=== PATIENT | male | born 1970 | race Caucasian/White ===

== ENCOUNTER 2021-05-20 12:52 | Emergency (ER) | payer SELFPAY ==
[2021-05-20 13:04] VITALS: BP 144/91; PULSE 80; RESP 19; TEMP 36.6; O2SAT 96; BMI 26.9
--- NOTE | 2021-05-20 13:51 | XRR_ITS ---
PROCEDURE INFORMATION: Exam: XR Chest Exam date and time: 05/20/2021 1:51 PM Age: 51 years old Clinical indication: Pain; Chest pressure; Additional info: Chest discomfort TECHNIQUE: Imaging protocol: XR of the chest. Views: 1 view. COMPARISON: No relevant prior studies available. FINDINGS: Lungs: Unremarkable. No consolidation. Pleural spaces: Unremarkable. No pleural effusion. No pneumothorax. Heart/Mediastinum: Unremarkable. No cardiomegaly. Bones/joints: Unremarkable. XR/XR chest 1V portable [id number] IMPRESSION: No acute findings.
[2021-05-20 14:16] VITALS: BP 166/103; PULSE 74; RESP 16; O2SAT 96
[2021-05-20 14:29] LABS: Add Urine Microscopic? NO; Charge for UA Resulting for Rev
--- NOTE | 2021-05-20 14:29 | ED_ITS ---
Documented by User: [email or web address] Rodriguez 05/20/21 16:16 HPI - General Adult General: Chief complaint: General Medical Stated complaint: CHEST PAINS Time Seen by Provider: 05/20/21 13:45 History of Present Illness: HPI narrative: Patient been feeling bad for 2 to 3 weeks. Was started on blood pressure medication 3 months ago was placed on lisinopril and doxycycline for his teeth problems. Did not feel good at all after starting his medication was taken off and placed on Micardis. Blood pressures improved significantly but he said he still feels bad. States he has chest discomfort radiates at times into his neck both arms get tingly and feel numb at times. Does complain about anxiety and longstanding history of anxiety has not had any shortness of breath nausea vomiting or diaphoresis. Patient has been working full-time during this time and work exertion does not seem to aggravate or cause it to happen. Onset (ago): week(s) Associated symptoms: Reports malaise; Deny chest pain, dyspnea, headache(s), nausea, rash or vomiting Review of Systems Const: Reports: malaise Eyes: Denies: change in vision or blurry vision ENMT: Denies: throat pain or nasal congestion Card: Reports: other (Chest discomfort); Denies: chest pain or dyspnea on exertion Resp: Denies: dyspnea, productive cough or non-productive cough GI: Denies: abdominal pain, nausea or vomiting : Denies: difficulty urinating Musc: Denies: extremity pain Skin/Breast: Denies: rash Neuro: Reports: numbness in extremities and weakness in extremities; Denies: headache(s) Psych: Reports: anxiety; Denies: depression Surendra/Lymph: Denies: easy bruising Physical Exam Const: COMMON NORMALS: no acute distress, average body habitus and patient oriented x3 HENMT: COMMON NORMALS: normocephalic HEAD & SCALP: normal to inspection and normocephalic FACE & SINUS: normal facial exam Eye: COMMON NORMALS: conjunctivae normal GENERAL EYE: appearance normal, both eyes and all related structures CONJUNCTIVA: Yes conjunctivae normal Neck/C-Spine: COMMON NORMALS: no JVD Chest: COMMONS NORMALS: normal inspection of the chest Resp: COMMON NORMALS: normal respiratory effort and clear to auscultation bilaterally AUSCULTATION: clear to auscultation bilaterally Cardio: COMMON NORMALS: no JVD, regular rate and regular rhythm RATE: regular rate RHYTHM: regular rhythm GI: COMMON NORMALS: Normal to inspection, nondistended, normoactive bowel sounds present Extremity: COMMON NORMALS: normal to inspection and full ROM Neuro: COMMON NORMALS: patient oriented x3 Course Vital Signs: Vital signs: Vital Signs Temperature 97.8 F 05/20/21 13:04 Pulse Rate 83 05/20/21 17:50 Respiratory Rate 15 05/20/21 17:50 Blood Pressure 138/91 05/20/21 17:50 Pulse Oximetry 98 05/20/21 17:50 [facility] - General Adult Lab Data: Labs: Lab Results 05/20/21 05/20/21 05/20/21 Range/Units 14:22 14:22 14:22 WBC 8.5 (4.0-10.0) 10^3/ uL RBC 5.49 H (4.1-5.3) 10^6/u L Hgb 17.3 H (11.7-16.6) g/dL Hct 50.3 (42.0-52.0) % MCV 91.6 (80-94) fL MCH 31.5 (28.0-34.0) pg MCHC 34.4 (30.0-36.0) g/dL RDW 12.0 L (12.1-15.1) % Plt Count 229 (130-400) 10^3/c mm MPV 9.5 (7.4-10.4) fL Neut % (Auto) 50.4 % Lymph % (Auto) 42.4 % Jerauld % (Auto) 5.4 % Eos % (Auto) 1.5 % Baso % (Auto) 0.1 % Neut # (Auto) 4.30 (1.8-7.7) 10^3/u L Lymph # (Auto) 3.6 (0.8-4.8) 10^3/u L Jerauld # (Auto) 0.5 (0.2-0.9) 10^3/u L Eos # (Auto) 0.1 (0.0-0.8) 10^3/u L Baso # (Auto) 0.0 (0.0-0.1) 10^3/u L Nucleated RBC % (a uto) 0 % Nucleated RBCs # 0.0 /100WBC Sodium 136 (136-145) mmol/L Potassium 3.8 (3.5-5.1) mmol/L Chloride 98 (98-107) mmol/L Carbon Dioxide 30 H (22-29) mmol/L Anion Gap 11.8 (5-19) BUN 9 (6-20) mg/dL Creatinine 0.9 (0.7-1.2) mg/dL GFR Calculation 88.3 L (90-130) mL/min Glucose 107 (65-115) mg/dL Calculated Osmolal ity 281 L (285-295) mOsm/k g Calcium 9.4 (8.5-10.5) mg/dL Total Bilirubin 0.6 (0.15-1.2) mg/dL AST 13 (0-40) U/L ALT 14 (0-41) U/L Alkaline Phosphata se 85 (40-130) IU/L Troponin T Baselin e 7 (0-15) ng/L Troponin T 120 Min [place] (0-15) ng/L Delta Troponin T (0-10) ABS# Total Protein 7.0 (6.6-8.7) g/dL Albumin 4.5 (3.5-5.2) g/dL Globulin 2.5 (1.3-4.6) g/dL Urine Color (Yellow) Urine Appearance (CLEAR) Urine pH (5-7) Ur Specific Gravit y (1.005-1.030) Urine Protein (Negative) Urine Glucose (UA) (Normal) Urine Ketones (Negative) Urine Blood (Negative) Urine Nitrate (Negative) Urine Bilirubin (Negative) Urine Urobilinogen (Negative) mg/dL Ur Leukocyte Renata ase (Negative) 05/20/21 05/20/21 Range/Units 14:22 16:22 WBC (4.0-10.0) 10^3/ uL RBC (4.1-5.3) 10^6/u L Hgb (11.7-16.6) g/dL Hct (42.0-52.0) % MCV (80-94) fL MCH (28.0-34.0) pg MCHC (30.0-36.0) g/dL RDW (12.1-15.1) % Plt Count (130-400) 10^3/c mm MPV (7.4-10.4) fL Neut % (Auto) % Lymph % (Auto) % Jerauld % (Auto) % Eos % (Auto) % Baso % (Auto) % Neut # (Auto) (1.8-7.7) 10^3/u L Lymph # (Auto) (0.8-4.8) 10^3/u L Jerauld # (Auto) (0.2-0.9) 10^3/u L Eos # (Auto) (0.0-0.8) 10^3/u L Baso # (Auto) (0.0-0.1) 10^3/u L Nucleated RBC % (a uto) % Nucleated RBCs # /100WBC Sodium (136-145) mmol/L Potassium (3.5-5.1) mmol/L Chloride (98-107) mmol/L Carbon Dioxide (22-29) mmol/L Anion Gap (5-19) BUN (6-20) mg/dL Creatinine (0.7-1.2) mg/dL GFR Calculation (90-130) mL/min Glucose (65-115) mg/dL Calculated Osmolal ity (285-295) mOsm/k g Calcium (8.5-10.5) mg/dL Total Bilirubin (0.15-1.2) mg/dL AST (0-40) U/L ALT (0-41) U/L Alkaline Phosphata se (40-130) IU/L Troponin T Baselin e (0-15) ng/L Troponin T 120 Min [place] 6.00 (0-15) ng/L Delta Troponin T -1.00 L (0-10) ABS# Total Protein (6.6-8.7) g/dL Albumin (3.5-5.2) g/dL Globulin (1.3-4.6) g/dL Urine Color Yellow (Yellow) Urine Appearance Clear (CLEAR) Urine pH 6.5 (5-7) Ur Specific Gravit y 1.000 L (1.005-1.030) Urine Protein Neg (Negative) Urine Glucose (UA) Norm (Normal) Urine Ketones Negative (Negative) Urine Blood Neg (Negative) Urine Nitrate Negative (Negative) Urine Bilirubin Neg (Negative) Urine Urobilinogen Norm (Negative) mg/dL Ur Leukocyte Renata ase Negative (Negative) EKG Data^: EKG 2: EKG interpretation date: 05/20/21 EKG interpretation time: 16:16 Computer generated interpretation: Chest X-Ray 05/20/21 13:51 IMPRESSION: No acute findings. Ventricular rate 60 bpm MN interval 160 ms QRS duration 92 ms QT is 416 ms sinus rhythm Discharge Plan Discharge Patient Disposition: Home Clinical Impression: Anxiety about health Condition: Stable Prescriptions: New Ativan 0.5 mg tablet 0.5 mg PO Q12H PRN (Reason: anxiety) Qty: 7 RF: 0 Discharge Orders: Discharge ED (Routine); Ordered 05/20/21 Ordered By: Len Johnson Discharge Diet: Usual diet Discharge Activity: Resume usual activity Patient Instructions: Opioid Safety Activity Restrictions/Additional Instructions: Follow-up with medical provider as directed. Take medications as prescribed. Return to the ER or your medical provider if condition worsens. Please read and understand discharge instructions. If any questions ask please. Sign Out Sign Out Data: Patient Sign Out occurred on 05/20/21 at 17:04. Patient's care was discussed, and care was transferred from to YUN Freedman. Coding Level of Care Code ED Computer Tester for Chg Fwd Exam Comprehensive Documented by User: YUN Freedman 05/20/21 18:40 HPI - General Adult General: Chief complaint: General Medical Stated complaint: CHEST PAINS Time Seen by Provider: 05/20/21 13:45 Course Vital Signs: Vital signs: Vital Signs Temperature 97.8 F 05/20/21 13:04 Pulse Rate 83 05/20/21 17:50 Respiratory Rate 15 05/20/21 17:50 Blood Pressure 138/91 05/20/21 17:50 Pulse Oximetry 98 05/20/21 17:50 MDM - General Adult MDM Narrative: Medical decision making narrative: Patient care was transferred over to me by Len Johnson is the nurse practitioner at 5 PM. He performed the initial history, exam and lab work-up. I agree with all of his findings. Patient still was having some chest discomfort that has a history of anxiety. All patient's labs were unremarkable and his troponin was negative. EKG showed no signs of an CT. Patient was given Ativan here on the unit and his symptoms resolved. Patient was diagnosed with anxiety and discharged home with a prescription for Ativan. Follow-up with his PCP in 7 to 10 days for reevaluation. Return ED precautions given. Patient stood with plan. Lab Data: Labs: Lab Results 05/20/21 05/20/21 05/20/21 Range/Units 14:22 14:22 14:22 WBC 8.5 (4.0-10.0) 10^3/ uL RBC 5.49 H (4.1-5.3) 10^6/u L Hgb 17.3 H (11.7-16.6) g/dL Hct 50.3 (42.0-52.0) % MCV 91.6 (80-94) fL MCH 31.5 (28.0-34.0) pg MCHC 34.4 (30.0-36.0) g/dL RDW 12.0 L (12.1-15.1) % Plt Count 229 (130-400) 10^3/c mm MPV 9.5 (7.4-10.4) fL Neut % (Auto) 50.4 % Lymph % (Auto) 42.4 % Jerauld % (Auto) 5.4 % Eos % (Auto) 1.5 % Baso % (Auto) 0.1 % Neut # (Auto) 4.30 (1.8-7.7) 10^3/u L Lymph # (Auto) 3.6 (0.8-4.8) 10^3/u L Jerauld # (Auto) 0.5 (0.2-0.9) 10^3/u L Eos # (Auto) 0.1 (0.0-0.8) 10^3/u L Baso # (Auto) 0.0 (0.0-0.1) 10^3/u L Nucleated RBC % (a uto) 0 % Nucleated RBCs # 0.0 /100WBC Sodium 136 (136-145) mmol/L Potassium 3.8 (3.5-5.1) mmol/L Chloride 98 (98-107) mmol/L Carbon Dioxide 30 H (22-29) mmol/L Anion Gap 11.8 (5-19) BUN 9 (6-20) mg/dL Creatinine 0.9 (0.7-1.2) mg/dL GFR Calculation 88.3 L (90-130) mL/min Glucose 107 (65-115) mg/dL Calculated Osmolal ity 281 L (285-295) mOsm/k g Calcium 9.4 (8.5-10.5) mg/dL Total Bilirubin 0.6 (0.15-1.2) mg/dL AST 13 (0-40) U/L ALT 14 (0-41) U/L Alkaline Phosphata se 85 (40-130) IU/L Troponin T Baselin e 7 (0-15) ng/L Troponin T 120 Min [place] (0-15) ng/L Delta Troponin T (0-10) ABS# Total Protein 7.0 (6.6-8.7) g/dL Albumin 4.5 (3.5-5.2) g/dL Globulin 2.5 (1.3-4.6) g/dL Urine Color (Yellow) Urine Appearance (CLEAR) Urine pH (5-7) Ur Specific Gravit y (1.005-1.030) Urine Protein (Negative) Urine Glucose (UA) (Normal) Urine Ketones (Negative) Urine Blood (Negative) Urine Nitrate (Negative) Urine Bilirubin (Negative) Urine Urobilinogen (Negative) mg/dL Ur Leukocyte Renata ase (Negative) 05/20/21 05/20/21 Range/Units 14:22 16:22 WBC (4.0-10.0) 10^3/ uL RBC (4.1-5.3) 10^6/u L Hgb (11.7-16.6) g/dL Hct (42.0-52.0) % MCV (80-94) fL MCH (28.0-34.0) pg MCHC (30.0-36.0) g/dL RDW (12.1-15.1) % Plt Count (130-400) 10^3/c mm MPV (7.4-10.4) fL Neut % (Auto) % Lymph % (Auto) % Jerauld % (Auto) % Eos % (Auto) % Baso % (Auto) % Neut # (Auto) (1.8-7.7) 10^3/u L Lymph # (Auto) (0.8-4.8) 10^3/u L Jerauld # (Auto) (0.2-0.9) 10^3/u L Eos # (Auto) (0.0-0.8) 10^3/u L Baso # (Auto) (0.0-0.1) 10^3/u L Nucleated RBC % (a uto) % Nucleated RBCs # /100WBC Sodium (136-145) mmol/L Potassium (3.5-5.1) mmol/L Chloride (98-107) mmol/L Carbon Dioxide (22-29) mmol/L Anion Gap (5-19) BUN (6-20) mg/dL Creatinine (0.7-1.2) mg/dL GFR Calculation (90-130) mL/min Glucose (65-115) mg/dL Calculated Osmolal ity (285-295) mOsm/k g Calcium (8.5-10.5) mg/dL Total Bilirubin (0.15-1.2) mg/dL AST (0-40) U/L ALT (0-41) U/L Alkaline Phosphata se (40-130) IU/L Troponin T Baselin e (0-15) ng/L Troponin T 120 Min [place] 6.00 (0-15) ng/L Delta Troponin T -1.00 L (0-10) ABS# Total Protein (6.6-8.7) g/dL Albumin (3.5-5.2) g/dL Globulin (1.3-4.6) g/dL Urine Color Yellow (Yellow) Urine Appearance Clear (CLEAR) Urine pH 6.5 (5-7) Ur Specific Gravit y 1.000 L (1.005-1.030) Urine Protein Neg (Negative) Urine Glucose (UA) Norm (Normal) Urine Ketones Negative (Negative) Urine Blood Neg (Negative) Urine Nitrate Negative (Negative) Urine Bilirubin Neg (Negative) Urine Urobilinogen Norm (Negative) mg/dL Ur Leukocyte Renata ase Negative (Negative) EKG Data^: EKG 2: Computer generated interpretation: Chest X-Ray 05/20/21 13:51 IMPRESSION: No acute findings. Discharge Plan Discharge Patient Disposition: Home Clinical Impression: Anxiety about health Condition: Stable Prescriptions: New Ativan 0.5 mg tablet 0.5 mg PO Q12H PRN (Reason: anxiety) Qty: 7 RF: 0 Discharge Orders: Discharge ED (Routine); Ordered 05/20/21 Ordered By: Len Johnson Discharge Diet: Usual diet Discharge Activity: Resume usual activity Patient Instructions: Opioid Safety Activity Restrictions/Additional Instructions: Follow-up with medical provider as directed. Take medications as prescribed. Return to the ER or your medical provider if condition worsens. Please read and understand discharge instructions. If any questions ask please. Sign Out Sign Out Data: Patient Sign Out occurred on 05/20/21 at 17:04. Patient's care was discussed, and care was transferred from to YUN Freedman. Coding Level of Care Code ED Computer Tester for Cornelia Fwtamika Exam Comprehensive
[2021-05-20 14:30] LABS: Basophils % 0.1 %; Eosinophils # 0.1 10^3/uL (0.0-0.8); Eosinophils % 1.5 %; Hematocrit 50.3 % (42.0-52.0); Hemoglobin 17.3 g/dL (11.7-16.6); Lymphocytes # 3.6 10^3/uL (0.8-4.8); Lymphocytes % 42.4 %; Mean Corpuscular HGB Conc 34.4 g/dL (30.0-36.0); Mean Corpuscular Hemoglobin 31.5 pg (28.0-34.0); Mean Corpuscular Volume 91.6 fL (80-94); Mean Platelet Volume 9.5 fL (7.4-10.4); Monocytes # 0.5 10^3/uL (0.2-0.9); Monocytes % 5.4 %; Neutrophils % 50.4 %; Nucleated Red Blood Cells % 0 %; Platelet Count 229 10^3/cmm (130-400); Red Blood Count 5.49 10^6/uL (4.1-5.3); White Blood Count 8.5 10^3/uL (4.0-10.0)
[2021-05-20 14:32] LABS: Bilirubin Urine Neg (Negative); Blood Urine Neg (Negative); Glucose Urine UA Norm (Normal); Ketones Urine Negative (Negative); Leukocyte Esterase Urine Negative (Negative); Nitrate Urine Negative (Negative); Protein Urine Neg (Negative); Urine Appearance Clear (CLEAR); Urine Color Yellow (Yellow); Urobilinogen Urine Norm (Negative); pH Urine 6.5 (5-7)
[2021-05-20 14:46] LABS: Alanine Aminotransferase 14 U/L (0-41); Albumin Level 4.5 g/dL (3.5-5.2); Alkaline Phosphatase 85 IU/L (40-130); Anion Gap 11.8 (5-19); Aspartate Amino Transferase 13 U/L (0-40); Blood Urea Nitrogen 9 mg/dL (6-20); Calcium 9.4 mg/dL (8.5-10.5); Carbon Dioxide 30 mmol/L (22-29); Chloride 98 mmol/L (98-107); Creatinine Clr Calc Pharmacy 117.3716; Globulin 2.5 g/dL (1.3-4.6); Glomerular Filtration Rate 88.3 mL/min (90-130); Glucose 107 mg/dL (65-115); Osmolality Calculated 281 mOsm/kg (285-295); Potassium 3.8 mmol/L (3.5-5.1); Sodium 136 mmol/L (136-145); Total Bilirubin 0.6 mg/dL (0.15-1.2)
[2021-05-20 14:47] LABS: Troponin(5th) Baseline 7 ng/L (0-15)
[2021-05-20] MEDS: LORazepam 1 mg Tablet PO (15:49)
--- NOTE | 2021-05-20 15:51 | ECG_ITS ---
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 Measurements Intervals [place] Rate: 60 P: 53 VA: 160 QRS: 42 QRSD: 92 T: 60 QT: 416 QTc: 417 Interpretive Statements SINUS RHYTHM NONSPECIFIC T-WAVE ABNORMALITY Compared to ECG 05/20/2021 13:22:35 Sinus arrhythmia no longer present T-wave abnormality still present Electronically Signed On 05-20-2021 19:25:14 CDT by Meg Edge M.D. [email or web address]
[2021-05-20 15:58] VITALS: BP 151/100; PULSE 71; RESP 16; O2SAT 95
[2021-05-20 17:50] VITALS: BP 138/91; PULSE 83; RESP 15; O2SAT 98
--- NOTE | 2021-05-20 19:51 | ECG_ITS ---
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 Measurements Intervals [place] Rate: 71 P: 67 VT: 159 QRS: 51 QRSD: 97 T: 54 QT: 380 QTc: 415 Interpretive Statements SINUS RHYTHM WITH SINUS ARRHYTHMIA NONSPECIFIC T-WAVE ABNORMALITY No previous ECG available for comparison Electronically Signed On 05-20-2021 19:24:11 CDT by Meg Edge M.D. [id number]
[2021-05-22 12:23] LABS: Lyme AB Screen <0.90 index
[2021-05-24 22:27] LABS: RMSF IGG NOT DETECTED; RMSF IGM NOT DETECTED
[2021-05-25 17:58] LABS: E. Chaffeensis AB IGG <1:64; E. Chaffeensis AB IGM <1:20
== END 2021-05-20 17:52 | disposition home or self-care (01) ==
PROVIDERS: Nurse Practitioner Family; Emergency Provider Physician Assistant
DX: F41.9 Anxiety disorder, unspecified (principal)
CPT/HCPCS: 36415; 71045; 80053; 81003; 84484; 85025; 86618; 86666; 86757; 93005; 99283